=== PATIENT | male | born 1985 | race American Indian/Alaskan Native ===

== ENCOUNTER 2018-07-02 19:39 | Emergency (ER) | payer BC ==
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
[2018-07-02] MEDS ORDERED: MARCAINE 0.5% INFILTRATI ONE (23:28)
[2018-07-02] MEDS ORDERED: CLEOCIN PO ONE (23:28)
[2018-07-02] MEDS ORDERED: NORCO 5/325 PO ONE (23:30)
[2018-07-02] MEDS ORDERED: ATIVAN PO ONE (23:30)
[2018-07-02] MEDS ORDERED: BENADRYL PO ONE (23:31)
[2018-07-03 00:05] LABS: Basophils # (Auto) 0.1 K/mm3 (0.0-0.1); Basophils % (Auto) 0.4 % (0.0-1.8); Eosinophils # (Auto) 0.1 K/mm3 (0.0-0.4); Eosinophils % (Auto) 0.7 % (0.0-4.3); Hematocrit 46.3 % (35.5-45.6); Hemoglobin 15.5 gm/dl (11.8-15.2); Lymphocytes # (Auto) 1.6 K/mm3 (1.2-5.4); Lymphocytes % (Auto) 14.2 % (13.4-35.0); Mean Corpuscular HGB Conc 34 % (32-34); Mean Corpuscular Volume 86 fl (84-94); Monocytes % (Auto) 9.1 % (0.0-7.3); Platelet Count 288 K/mm3 (140-440)
[2018-07-03 04:06] VITALS: BP 150/93
== END 2018-07-03 04:10 | disposition home or self-care (01) ==
LOC: ED 19:39
DX: L05.01 Pilonidal cyst with abscess (principal); L03.317 Cellulitis of buttock; F41.9 Anxiety disorder, unspecified
CPT/HCPCS: 36415; 85025; 87076; 87116; 87186; 93005; 93010; 99283